=== PATIENT | female | born 1935 | race Two or more races ===

== ENCOUNTER 2019-01-01 09:49 | Inpatient (IN) | payer MEDICARE, MEDICAID ==
[~2019-01-01] VITALS: Ht 154.9 cm; Wt 40.8 kg
[2019-01-01] VITALS (7 sets, daily range): BP systolic 112–159; BP diastolic 53–86
[~2019-01-01 09:49] MED LIST: DILANTIN30 MG ORAL; DILANTIN50 MG ORAL; LISINOPRIL5 MG ORAL
--- NOTE | 2019-01-01 09:50 | NUR ---
ED Nurse Note: patient was brought by RA from home, AAO x 1, skin is very dry, intact. VSS at this time. patient has history of stroke, due to that patient is weak on her left side. Per patient's family she had seizure for 6 min. patient was connected to the monitor, precautions pad were applied. will continue to monitor
--- NOTE | 2019-01-01 09:55 | Emergency Room Report ---
History of Present Illness General Chief Complaint: Seizure Source: Patient, EMS (Dharmesh Hodgson MD) Present Illness HPI Patient is an 83-year-old female brought in by EMS after witnessed seizure. Patient reportedly had a approximately 6-minute seizure. Patient had prior history of CVA with left-sided weakness. Patient currently takes Dilantin. Patient was noted to be somewhat lethargic. (Dharmesh Hodgson MD) Allergies: Coded Allergies: PENICILLINS (Verified Allergy, Unknown, RASH, SOB, SWELLING, 01/01/19) PER PATIENT'S DAUGHTER Patient History Past Medical History: see triage record Reviewed Nursing Documentation: PMH: Agreed; PSxH: Agreed (Dharmesh Hodgson MD) Nursing Documentation-PMH Hx Hypertension: Yes Hx Seizures: Yes (Dharmesh Hodgson MD) Physical Exam Vital Signs Date Time Temp Pulse Resp B/P (MAP) Pulse Ox O2 Delivery O2 Flow Rate FiO2 01/01/19 09:34 98.4 78 19 174/75 95 Room Air General Appearance: lethargic, Chronically Ill Eyes: bilateral eye EOMI ENT: dry mucus membranes Neck: limited range of motion Respiratory: lungs clear, normal breath sounds Cardiovascular #1: tachycardia Gastrointestinal: normal inspection, soft Genitourinary: no CVA tenderness Musculoskeletal: back normal Neurologic: responsive, motor weakness - left upper extremity Psychiatric: depressed affect Skin: normal inspection (Dharmesh Hodgson MD) Medical Decision Making Diagnostic Impression: Primary Impression: Epileptic seizure, generalized Additional Impression: Generalized weakness ER Course Patient presented for seizure. Differential diagnosis included CVA, medication withdrawal, cysticercosis, electrolyte abnormality, mass lesion, or intracranial hemorrhage.Patient reportedly had been seen recently at urgent care. Patient was given IV Keppra. she had recently been prescribed Keppra. Patient had previously had some residual left-sided weakness. EKG interpreted by me showed normal sinus rhythm with a rate of [address] or T wave changes. Patient was endorsed to Dr. Padilla pending CT imaging and final disposition. Labs Test 01/01/19 09:50 White Blood Count 8.7 K/UL (4.8-10.8) Red Blood Count 4.97 M/UL (4.20-5.40) Hemoglobin 15.4 G/DL (12.0-16.0) Hematocrit 47.2 % (37.0-47.0) Mean Corpuscular Volume 95 FL (80-99) Mean Corpuscular Hemoglobin 31.0 PG (27.0-31.0) Mean Corpuscular Hemoglobin Concent 32.6 G/DL (32.0-36.0) Red Cell Distribution Width 12.1 % (11.6-14.8) Platelet Count 249 K/UL (150-450) Mean Platelet Volume 7.8 FL (6.5-10.1) Neutrophils (%) (Auto) 70.9 % (45.0-75.0) Lymphocytes (%) (Auto) 21.1 % (20.0-45.0) Monocytes (%) (Auto) 6.7 % (1.0-10.0) Eosinophils (%) (Auto) 0.9 % (0.0-3.0) Basophils (%) (Auto) 0.4 % (0.0-2.0) Sodium Level 138 MMOL/L (136-145) Potassium Level 3.5 MMOL/L (3.5-5.1) Chloride Level 101 MMOL/L (98-107) Carbon Dioxide Level 29 MMOL/L (21-32) Anion Gap 8 mmol/L (5-15) Blood Urea Nitrogen 11 mg/dL (7-18) Creatinine 0.7 MG/DL (0.55-1.30) Estimat Glomerular Filtration Rate mL/min (>60) Glucose Level 100 MG/DL (74-106) Calcium Level 9.4 MG/DL (8.5-10.1) Total Bilirubin 0.7 MG/DL (0.2-1.0) Aspartate Amino Transf (AST/SGOT) 29 U/L (15-37) Alanine Aminotransferase (ALT/SGPT) 31 U/L (12-78) Alkaline Phosphatase 99 U/L (46-116) Total Protein 8.4 G/DL (6.4-8.2) Albumin 3.7 G/DL (3.4-5.0) Globulin 4.7 g/dL Albumin/Globulin Ratio 0.8 (1.0-2.7) Phenytoin (Dilantin) Level < 0.5 ug/mL (10-20) (Dharmesh Hodgson MD) ER Course Please refer to the initial note for the history exam and presentation Patient had been further disposition for inpatient care and pending endorsement for admission Initially I spoke to a physician and [facility] At a later time we were called back and told that the physician at this hospital would not be excepting the patient Has been over 7 hours of the patient stay in the emergency room I have asked registration to please escalate this with questioning to the IPA regarding the delay of care Nevertheless the patient was contacted for admission [facility] Please note that after further discussion with patient's family they also report patient has history of demyelinating disease, the other family member reports of the patient has had the same presentation with her left arm flexing upward for over the past 2 years, this was initially reported as being a new finding X-ray imaging did not show any acute disease on the left shoulder Again after prolonged stay in the emergency room after initial acceptance at [facility] And then now request for [facility] In decision-making for the best interest of the patient patient is admitted here for further care , Labs Test 01/01/19 09:50 White Blood Count 8.7 K/UL (4.8-10.8) Red Blood Count 4.97 M/UL (4.20-5.40) Hemoglobin 15.4 G/DL (12.0-16.0) Hematocrit 47.2 % (37.0-47.0) Mean Corpuscular Volume 95 FL (80-99) Mean Corpuscular Hemoglobin 31.0 PG (27.0-31.0) Mean Corpuscular Hemoglobin Concent 32.6 G/DL (32.0-36.0) Red Cell Distribution Width 12.1 % (11.6-14.8) Platelet Count 249 K/UL (150-450) Mean Platelet Volume 7.8 FL (6.5-10.1) Neutrophils (%) (Auto) 70.9 % (45.0-75.0) Lymphocytes (%) (Auto) 21.1 % (20.0-45.0) Monocytes (%) (Auto) 6.7 % (1.0-10.0) Eosinophils (%) (Auto) 0.9 % (0.0-3.0) Basophils (%) (Auto) 0.4 % (0.0-2.0) Sodium Level 138 MMOL/L (136-145) Potassium Level 3.5 MMOL/L (3.5-5.1) Chloride Level 101 MMOL/L (98-107) Carbon Dioxide Level 29 MMOL/L (21-32) Anion Gap 8 mmol/L (5-15) Blood Urea Nitrogen 11 mg/dL (7-18) Creatinine 0.7 MG/DL (0.55-1.30) Estimat Glomerular Filtration Rate mL/min (>60) Glucose Level 100 MG/DL (74-106) Calcium Level 9.4 MG/DL (8.5-10.1) Total Bilirubin 0.7 MG/DL (0.2-1.0) Aspartate Amino Transf (AST/SGOT) 29 U/L (15-37) Alanine Aminotransferase (ALT/SGPT) 31 U/L (12-78) Alkaline Phosphatase 99 U/L (46-116) Total Protein 8.4 G/DL (6.4-8.2) Albumin 3.7 G/DL (3.4-5.0) Globulin 4.7 g/dL Albumin/Globulin Ratio 0.8 (1.0-2.7) Phenytoin (Dilantin) Level < 0.5 ug/mL (10-20) (Prince Padilla DO) EKG Diagnostic Results Rate: normal Rhythm: NSR ST Segments: no acute changes (Dharmesh Hodgson MD) Other X-Ray Diagnostic Results Other X-Ray Diagnostic Results #1: X-Ray ordered: Left shoulder # of Views/Limited Vs Complete: 3 View Indication: Pain EP Interpretation: Yes Interpretation: no dislocation, no soft tissue swelling, no fractures Impression: No acute disease Electronically Signed by: Prince Padilla DO Other X-Ray Diagnostic Results #2: X-Ray ordered: left humerus # of Views/Limited Vs Complete: 2 View Indication: Pain EP Interpretation: Yes Interpretation: no dislocation, no soft tissue swelling, no fractures Impression: No acute disease Electronically Signed by: Prince Padilla DO (Prince Padilla DO) CT/MRI/US Diagnostic Results CT/MRI/US Diagnostic Results : Impression CT headIMPRESSION: 1. No acute intracranial findings. No evidence of intracranial hemorrhage, mass effect, or midline shift. 2. Remote lacunar infarct in the left basal ganglia. 3. Scattered periventricular and subcortical white matter hypodensities likely related to chronic small vessel disease changes. 4. Generalized cerebral parenchymal volume loss, likely age-related. 5. Symmetric prominence of the lateral and third ventricles is likely related to cerebral atrophy. Cannot exclude mild hydrocephalus. (Prince Padilla DO) Last Vital Signs Date Time Temp Pulse Resp B/P (MAP) Pulse Ox O2 Delivery O2 Flow Rate FiO2 01/01/19 09:34 98.4 78 19 174/75 95 Room Air Status: unchanged (Dharmesh Hodgson MD) Status: improved (Prince Padilla DO) Disposition: ADMITTED INPATIENT Condition: Serious Dharmesh Hodgson MD Jan 01, 2019 09:55 Prince Padilla DO Jan 01, 2019 18:21
[2019-01-01] MEDS ORDERED: levETIRAcetam 500 MG in D5W 110 ML IV ONE (10:30)
--- NOTE | 2019-01-01 10:36 | NUR ---
ED Nurse Note: due to tecnical issues EKG can not be done at this time
[2019-01-01 10:40] LABS: BASOPHILS % (AUTO) 0.4 % (0.0-2.0); EOSINOPHILS % (AUTO) 0.9 % (0.0-3.0); HEMATOCRIT 47.2 % (37.0-47.0); HEMOGLOBIN 15.4 G/DL (12.0-16.0); LYMPHOCYTES % (AUTO) 21.1 % (20.0-45.0); MEAN CORPUSCULAR VOLUME 95 FL (80-99); MONOCYTES % (AUTO) 6.7 % (1.0-10.0); NEUTROPHILS % (AUTO) 70.9 % (45.0-75.0); PLATELET COUNT 249 K/UL (150-450); RED BLOOD COUNT 4.97 M/UL (4.20-5.40); RED CELL DISTRIBUTION WIDTH 12.1 % (11.6-14.8); WHITE BLOOD COUNT 8.7 K/UL (4.8-10.8)
[2019-01-01 10:45] LABS: ANION GAP 8 mmol/L (5-15); BLOOD UREA NITROGEN 11 mg/dL (7-18); CALCIUM 9.4 MG/DL (8.5-10.1); CARBON DIOXIDE 29 MMOL/L (21-32); CHLORIDE 101 MMOL/L (98-107); CREATININE 0.7 MG/DL (0.55-1.30); POTASSIUM 3.5 MMOL/L (3.5-5.1); SODIUM 138 MMOL/L (136-145)
[2019-01-01 10:50] LABS: ALANINE AMINOTRANSFERASE 31 U/L (12-78); ALBUMIN 3.7 G/DL (3.4-5.0); ALBUMIN/GLOBULIN RATIO 0.8 (1.0-2.7); ALKALINE PHOSPHATASE 99 U/L (46-116); ASPARTATE AMINO TRANSFERASE 29 U/L (15-37); BILIRUBIN,TOTAL 0.7 MG/DL (0.2-1.0)
[2019-01-01] MEDS ORDERED: CLOPIDOGREL75 MG ORAL (12:29)
[2019-01-01] MEDS ORDERED: NAMENDA10 MG ORAL (12:29)
[2019-01-01] MEDS ORDERED: VENLAFAXINE H37.5 MG ORAL (12:29)
[2019-01-01] MEDS ORDERED: LACTULOSE10 GM/155 PO (12:29)
[2019-01-01] MEDS ORDERED: LEVETIRACE100 MG/1 M PO (12:29)
[2019-01-01] MEDS ORDERED: DONEPEZIL HCL10 MG ORAL (12:29)
[2019-01-01] MEDS ORDERED: GABAPENTIN300 MG ORAL (12:29)
[2019-01-01] MEDS ORDERED: HALOPERIDOL0.5 MG ORAL (12:29)
--- NOTE | 2019-01-01 13:10 | NUR ---
ED Nurse Note: patient went down for CT scan
--- NOTE | 2019-01-01 14:30 | Diagnostic Imaging Report ---
EXAM: CT Head Without Intravenous Contrast CLINICAL HISTORY: Altered mental status TECHNIQUE: Axial computed tomography images of the head/brain without intravenous contrast. CTDI is 70.53 mGy and DLP is 1347 mGy-cm. One or more of the following dose reduction techniques were used: automated exposure control, adjustment of the mA and/or kV according to patient size, use of iterative reconstruction technique. COMPARISON: No relevant prior studies available. FINDINGS: Brain: Generalized parenchymal volume loss, likely age-related. Periventricular and subcortical white matter hypodensities. Remote lacunar infarct in the left basal ganglia. No evidence of acute intracranial hemorrhage. No mass effect or midline shift. Ventricles: Symmetric prominence of the lateral and third ventricles, likely related to cerebral atrophy. . Bones/joints: Unremarkable. No acute fracture. Soft tissues: Unremarkable. Sinuses: Unremarkable as visualized. No acute sinusitis. Mastoid air cells: Unremarkable as visualized. No mastoid effusion. IMPRESSION: 1. No acute intracranial findings. No evidence of intracranial hemorrhage, mass effect, or midline shift. 2. Remote lacunar infarct in the left basal ganglia. 3. Scattered periventricular and subcortical white matter hypodensities likely related to chronic small vessel disease changes. 4. Generalized cerebral parenchymal volume loss, likely age-related. 5. Symmetric prominence of the lateral and third ventricles is likely related to cerebral atrophy. Cannot exclude mild hydrocephalus.
--- NOTE | 2019-01-01 15:56 | Diagnostic Imaging Report ---
ADDENDUM - Added by Paco Quintanilla MD on 01/01/2019 4:04 PM (-08:00) The left scapula and clavicle appear grossly intact. On further review, mild degenerative joint space loss at the left acromioclavicular and glenohumeral joints.. EXAM: XR Left Humerus, 2 or More Views CLINICAL HISTORY: TRAUMA TECHNIQUE: Frontal and lateral views of the left humerus. COMPARISON: No relevant prior studies available. FINDINGS: Bones/joints: Unremarkable. No visible displaced fracture or dislocation. No osseous erosions. Visualized joint spaces appear unremarkable. Soft tissues: Unremarkable. IMPRESSION: Unremarkable left humerus x-rays. <MYCVCSECTION> [employer] 01/01/19 16:12 Verify Receipt Verified receipt with Prince Padilla MD on 01/01 16:12 (-08:00)
[2019-01-01] MEDS ORDERED: Morphine Sulfate 4mg/ml Inj (IV USE ONLY) IVP ONE (16:00)
--- NOTE | 2019-01-01 16:21 | Diagnostic Imaging Report ---
EXAM: XR Left Shoulder Complete, 2 or More Views CLINICAL HISTORY: TRAUMA TECHNIQUE: Two or more views of the left shoulder. COMPARISON: Left humerus x-rays obtained the same date. FINDINGS: Bones/joints: Mild degenerative narrowing and marginal osteophytes in the left acromioclavicular and glenohumeral joints. Normal alignment is seen at the acromioclavicular and glenohumeral joints. No visible displaced fracture or dislocation. No osseous erosions. Coracoclavicular and subacromial spaces appear within normal limits. The clavicle and scapula appear intact. Soft tissues: Unremarkable. IMPRESSION: No evidence of acute fracture or dislocation.
--- NOTE | 2019-01-01 18:05 | NUR ---
ED Nurse Note: patient was transfered to tele, VSS at this time, report was given to MARQUEZ Jhaveri.
--- NOTE | 2019-01-01 18:12 | NUR ---
After vigorous tries to transfer patient finally was told by registration that bed at [facility] was blocked due to insurance being out of area. ER Md aware-admit patient to [facility].
[2019-01-01] MEDS ORDERED: EFFEXOR XR37.5 MG ORAL (18:15)
--- NOTE | 2019-01-01 19:44 | NUR ---
NURSE NOTES: REPORT RECEIVED FROM Yesenia, check belonging list, placed on laboratory monitor. report given to Danny ZAYAS
--- NOTE | 2019-01-01 19:45 | NUR ---
NURSE NOTES: Received report from Brenda Rangel RN. Patient in bed AAO x1 with ALOC, family at bedside. No S/S of acute pain or discomfort noted. kept clean, dry, and comfortable in bed. Belongings checklist done at bedside. Head to toe assessment initiated. Seizure and safety precaution in place at all times; siderails x3 up and padded, call light within reach, bed in lowest position, brakes and alarm on, and bedside suction equipment in place. Will call MD Navin for additional orders. Will continue to monitor
--- NOTE | 2019-01-01 20:50 | History & Physical ---
History and Physical History & Physicial Seizure RI Dementia, encephalopathy aspirating risk THN HLD Cad Sonja Verma DO Jan 01, 2019 20:50
[2019-01-01] MEDS ORDERED: LORazepam Inj 2mg/ml 1ml IV PRN (21:00)
[2019-01-01] MEDS ORDERED: Haloperidol 1mg tab ORAL PRN (21:15)
[2019-01-01] MEDS ORDERED: Lactulose 20gm/30ml UDC ORAL PRN (21:15)
[2019-01-01] MEDS ORDERED: levETIRAcetam 1,000mg/NS100ml 100 ML IVPB SCH (22:00)
--- NOTE | 2019-01-01 22:00 | NUR ---
NURSE NOTES: Spoke with Demian regarding patient status and admission to unit. New orders received and carried out. Will continue to monitor.
[2019-01-01] MEDS: D5NS 1,000 ML IV SCH (22:13)
[2019-01-02] VITALS: BP 154/84
--- NOTE | 2019-01-02 03:17 | NUR ---
NURSE NOTES: Patient in bed asleep with no S/S of acute pain. Will continue to monitor
--- NOTE | 2019-01-02 03:45 | Consultation ---
DATE OF CONSULTATION: 01/01/2019 NEUROLOGIC CONSULTATION CONSULTING PHYSICIAN: Juan Artis M.D. CHIEF COMPLAINT: This is the first [facility] admission for this 83-year-old right-handed woman who is admitted with a chief complaint of seizures beginning yesterday. HISTORY OF PRESENT ILLNESS: The patient has a history of dementia for at least a year, probably longer. She does not know her children's names frequently, does not know where she is at. She cannot walk for at least 30 years. She has had four strokes, last one was 20 years ago according to her daughter. She had left-sided weakness. Afterwards, she has not been able to walk for 20 years and is wheelchair bound. The patient has incontinence as well. There is no history of headaches or prior head injury. The patient did see doctors and was on Dilantin. The daughter denies a history of hypertension. Apparently, the patient has a history of hypertension. The patient lives with her daughter. The patient's laboratory on admission reveals a hemoglobin of 15.4 with hematocrit of 47.2, white count was 8700, and platelet count 249,000. She has normochromic normocytic indices. The patient was on Dilantin and her Dilantin level was less than 0.5. The chemistries are normal except for a total protein of 8.4. Creatinine is 0.7 and BUN is 11. The patient had a noncontrast CT scan of the brain today, which revealed: 1. Remote lacunar infarct in the left basal ganglia. 2. Scattered periventricular and subcortical white matter hypodensities, likely related to chronic small vessel disease changes. 3. Generalized cerebral parenchymal volume loss, slightly age-related. 4. Symmetric prominence of the lateral and third ventricle which is likely related to cerebral atrophy, cannot exclude mild hydrocephalus. The patient had shoulder and humerus x-rays. No fractures of the humerus were noted. The patient was given IV fluids of normal saline and placed on cardiac monitoring. She was given Keppra 500 mg IV one time and given morphine 4 mg IV. She had 4 mg of Zofran IV. I was asked to see the patient in neurologic consultation. There is no family history of neurologic disease. PAST MEDICAL HISTORY/PAST MEDICAL ILLNESSES: 1. Appendicitis and appendectomy 45 years ago. 2. Cerebrovascular disease, see above. 3. Possible history of hypertension. ALLERGIES: She is allergic to penicillin. SOCIAL HISTORY: She is a . She has four children. FAMILY HISTORY: Unavailable at this time. REVIEW OF SYSTEMS: Essentially unavailable. PHYSICAL EXAMINATION: GENERAL: She is a well-developed thin woman, lying in bed, with ballistic or clonic movements in the left upper extremity . There is fisting of the left hand. Some clonic movements of the left side of her abdomen and some lateral movements of the left leg, but much less than her abdomen or her left upper extremity. VITAL SIGNS: Blood pressure is 102/83, pulse oximetry is 100% on nasal cannula at 2 L/minute, pulse is 86, and temperature is 98 degrees. HEENT: Examination of the head, ears, eye, nose, mouth, and throat is essentially intact. The patient had a bruise in the lateral part of her tongue. NECK: She has significant neck stiffness both laterally and in forward movement. Carotids are +2 without any bruits. LUNGS: Breath sounds were decreased. CARDIOVASCULAR: PMI could not be felt today. JVP were not visualized. Heart tones are distant. I could not hear an S3, S4, murmur, or rubs. ABDOMEN: The abdomen was nearly scaphoid. There was clonic jerking on the left side of the abdomen. The bowel sounds are intact. There is no tenderness, masses, or organomegaly appreciated. BACK: There is no tenderness to percussion. Some kyphosis was noted. EXTREMITIES: Peripheral pulses are +2. There was no edema noted. NEUROLOGIC: Mental status, the patient's mental status fluctuated from mild lethargy to fully awake. She could do a one-step command. Stick out her tongue to command. She knew who she was. Did not know the date or the place. Nothing else could be obtained from her. CRANIAL NERVE EXAMINATION: CRANIAL NERVE II: Her visual vega appeared to be grossly intact bilaterally. Fundi could be visualized. CRANIAL NERVES III, IV AND : Horizontal extraocular motility was full to the right. However, there is gaze-evoked horizontal jerk nystagmus noted. Pupils are approximately 1.5 mm, round, with little to no light reaction. CRANIAL NERVE V: Corneal sensation was intact bilaterally. CRANIAL NERVE VII: Facial strength appeared to be symmetrical bilaterally. CRANIAL NERVE VIII: Auditory acuity was partially intact. CRANIAL NERVES IX AND X: Gag was decreased. CRANIAL NERVE XI: Could not be tested. CRANIAL NERVE XII: Tongue protruded in the midline without fasciculations or atrophy. MUSCLE EXAMINATION: The patient had clonic jerking movements mainly with abduction and elevation of the shoulder and flexion of the left elbow. She was fisting on the left side. Muscle strength, she can move the right upper extremity. Formal strength could not be tested. There was decreased bulk in the lower extremities. Tone was increased in the right upper extremity and decreased in the left upper extremity, and decreased in left leg compared to the right leg. There is some jerking of her lateral movement and jerking proximally at the left hip. There was no movement of the right lower extremity to deep pain and there was no movement to deep pain in the left lower extremity except for the above. Reflexes are 0 in the upper extremities and at the knees and ankles with an upgoing toe on testing for Babinski response on the right side, and a mute toe on the left side. COORDINATION: Could not be done. GAIT AND STATION: The patient was bedbound. SENSORY: The patient would open her eyes to deep pain in her chest, but not in her extremities. IMPRESSION: The patient's daughter states that the patient had bilateral tonic-clonic activity and she was probably unconscious. She has a lesion on the lateral part of her tongue, and therefore, she probably has a seizure disorder. Seizure disorder has been there for about a year. Yesterday, the patient had a five-minute seizure. 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 The patient's seizures are probably due to medication withdrawal. The causes of her seizures are probably due to cerebrovascular disease at least in the beginning. She may have had a new stroke now, but I cannot tell based on the CT scan of the brain and based on her physical examination. I am going to increase her Keppra to 1000 mg b.i.d. She will need an EEG and I am probably going to give her 1 mg of IV Ativan to stop her clonic jerks at this time. PLAN: 1. Ativan 2 mg IV now. 2. Keppra 1000 mg p.o. b.i.d. 3. EEG as soon as possible. 4. MRI scan of the brain. Thank you for this Dr. Navin bernard. Juan Artis MD DR: DANNIE JOB#: [id number] CC:
[2019-01-02 04:00] VITALS: BP 101/59
--- NOTE | 2019-01-02 07:10 | NUR ---
NURSE NOTES: Received report from Clayton. MARQUEZ. Patient resting in her bed with closed eyes. per report patient is a/o x 1 with ALOC and so agitated when awake. On 2L NC, tolerating well and SP02 at 99%. patient has no iv access at this time, patient removed her iv last night. 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 will continue plan of care and monitor for any changes noted.
--- NOTE | 2019-01-02 07:20 | NUR ---
HAND-OFF: Report given to Brenda Rangel RN. Patient in stable condition, endorsed plan of care.
[2019-01-02 07:50] LABS: BASOPHILS % (AUTO) 0.7 % (0.0-2.0); EOSINOPHILS % (AUTO) 0.4 % (0.0-3.0); HEMATOCRIT 36.8 % (37.0-47.0); HEMOGLOBIN 12.3 G/DL (12.0-16.0); LYMPHOCYTES % (AUTO) 20.3 % (20.0-45.0); MEAN CORPUSCULAR VOLUME 95 FL (80-99); MONOCYTES % (AUTO) 7.6 % (1.0-10.0); NEUTROPHILS % (AUTO) 71.1 % (45.0-75.0); PLATELET COUNT 218 K/UL (150-450); RED BLOOD COUNT 3.88 M/UL (4.20-5.40); RED CELL DISTRIBUTION WIDTH 12.1 % (11.6-14.8)
[2019-01-02 07:55] LABS: ANION GAP 9 mmol/L (5-15); BLOOD UREA NITROGEN 18 mg/dL (7-18); CALCIUM 9.1 MG/DL (8.5-10.1); CARBON DIOXIDE 26 MMOL/L (21-32); CHLORIDE 105 MMOL/L (98-107); CREATININE 0.7 MG/DL (0.55-1.30); POTASSIUM 3.5 MMOL/L (3.5-5.1); SODIUM 140 MMOL/L (136-145)
[2019-01-02 08:00] VITALS: BP 101/59
[2019-01-02] MEDS ORDERED: Haloperidol 1mg tab ORAL PRN (08:00)
--- NOTE | 2019-01-02 08:00 | NUR ---
NURSE NOTES: unable to insert new iv at this time ,patient so agitated and keep moving her arm.Dr. Verma notified. per we can admin Haldol 0.5 mg po every 4 hours
[2019-01-02] MEDS: Memantine 10mg tab ORAL SCH (08:23)
[2019-01-02] MEDS: levETIRAcetam 1,000mg/NS100ml 100 ML IVPB SCH ×2 (08:23→20:37)
[2019-01-02] MEDS: Donepezil 10mg tab ORAL SCH (08:24)
[2019-01-02] MEDS: Venlafaxine XR 37.5mg cap ORAL SCH (08:24)
[2019-01-02 09:25] VITALS: BP 143/73
[2019-01-02] MEDS ORDERED: LORazepam Inj 2mg/ml 1ml IV SCH ×2 (10:00→14:30)
--- NOTE | 2019-01-02 10:00 | NUR ---
NURSE NOTES: s/s of dysphagia noted. i crashed all medicationes and mixed awith apple sauce as ordered however, patient still had a hard time to swallow her medication. Dr. enciso notified regarding dysphagia. Stat Bedside ST eval ordered. per " still continue her po medications because she needs them."
--- NOTE | 2019-01-02 11:08 | NUR ---
CASE MANAGEMENT: REVIEW 83/F BIBA FROM HOME CC: SEIZURE SI: SEIZURE T 98.4 HR 78 RR 18 BP 174/75 SAT 95% ROOM AIR DILANTIN LEVEL <0.5 IS: KEPPRA IV X1 NS IVF BOLUS X1 ZOFRAN IV X1 MORPHINE IV X1 PATIENT ADMITTED TO TELEMETRY UNIT 01/01/2019 DCP: PATIENT IS FROM HOME
[2019-01-02] MEDS: D5NS 1,000 ML IV SCH (11:30)
[2019-01-02 11:55] VITALS: BP 118/56
--- NOTE | 2019-01-02 18:41 | Pulmonology Progress Note ---
Assessment/Plan Assessment/Plan Seizure RI Dementia, encephalopathy aspirating risk THN HLD Cad FU with neuro recommendations needs swallow eval ordered ? GT nebs and suction wound care monitor for sizure IVf for now Subjective Allergies: Coded Allergies: PENICILLINS (Verified Allergy, Unknown, RASH, SOB, SWELLING, 01/01/19) PER PATIENT'S DAUGHTER Subjective agitated through the day on haldol unable to take po AED via IV no reports of cp nv or bleeding Objective Last 24 Hour Vital Signs Date Time Temp Pulse Resp B/P (MAP) Pulse Ox O2 Delivery O2 Flow Rate FiO2 01/02/19 16:00 76 01/02/19 12:00 80 01/02/19 11:55 97.0 65 20 118/56 (76) 99 01/02/19 09:25 97.0 88 22 143/73 (96) 99 01/02/19 09:00 Nasal Cannula 2.0 01/02/19 08:00 89 01/02/19 08:00 97.9 75 18 101/59 (73) 98 01/02/19 04:00 97.9 75 18 101/59 (73) 98 01/02/19 04:00 79 01/02/19 00:00 98.0 87 19 154/84 (107) 99 01/02/19 00:00 81 01/01/19 21:00 Nasal Cannula 2.0 01/01/19 20:00 86 01/01/19 20:00 98.0 61 18 152/53 (86) 99 01/01/19 19:53 Nasal Cannula 2.0 01/01/19 19:11 98.0 86 20 102/83 100 Nasal Cannula 2.0 86 01/01/19 18:47 98.0 79 23 141/74 99 Nasal Cannula 2.0 Intake and Output 01/01/19 01/02/19 19:00 07:00 Intake Total 500 ml Balance 500 ml Intake IV Total 500 ml General Appearance: cachetic HEENT: normocephalic Respiratory/Chest: crackles/rales, rhonchi Cardiovascular: normal rate, regular rhythm Abdomen: soft, non tender, no organomegaly Neurologic/Psychiatric: unresponsiveness Laboratory Tests 01/02/19 07:12: White Blood Count 7.0, Red Blood Count 3.88L, Hemoglobin 12.3, Hematocrit 36.8L , Mean Corpuscular Volume 95, Mean Corpuscular Hemoglobin 31.8H, Mean Corpuscular Hemoglobin Concent 33.5, Red Cell Distribution Width 12.1, Platelet Count 218, Mean Platelet Volume 7.8, Neutrophils (%) (Auto) 71.1, Lymphocytes (% ) (Auto) 20.3, Monocytes (%) (Auto) 7.6, Eosinophils (%) (Auto) 0.4, Basophils ( %) (Auto) 0.7, Sodium Level 140, Potassium Level 3.5, Chloride Level 105, Carbon Dioxide Level 26, Anion Gap 9, Blood Urea Nitrogen 18, Creatinine 0.7, Estimat Glomerular Filtration Rate , Glucose Level 87, Calcium Level 9.1, Magnesium Level 2.1 Current Medications Medications (Trade) Dose Ordered Sig/Jeanne Route PRN Reason Start Time Stop Time Status Last Admin Dose Admin Acetaminophen (Tylenol) 650 mg Q4H PRN ORAL Mild Pain/Temp > 100.5 01/01/19 21:00 01/31/19 20:59 Clopidogrel Bisulfate (Plavix) 75 mg DAILY ORAL 01/02/19 09:00 02/01/19 08:59 01/02/19 08:24 Dextrose/Sodium Chloride 1,000 ml @ 75 mls/hr [id number] IV 01/01/19 22:00 01/31/19 21:59 01/02/19 11:30 Donepezil HCl (Aricept) 10 mg DAILY ORAL 01/02/19 09:00 02/01/19 08:59 01/02/19 08:24 Gabapentin (Neurontin) 300 mg BEDTIME ORAL 01/02/19 21:00 02/01/19 20:59 Haloperidol (Haldol) 0.5 mg EVERY 4 HOURS PRN ORAL Agitation/Psychosis 01/02/19 08:00 01/31/19 21:14 01/02/19 08:23 Lactulose (Cephulac) 20 gm Q12H PRN ORAL Constipation 01/01/19 21:15 01/31/19 21:14 Levetiracetam 100 ml @ 400 mls/hr Q12HR IVPB 01/02/19 09:00 02/01/19 08:59 01/02/19 08:23 Lorazepam (Ativan 2mg/ml 1ml) 2 mg Q30M PRN IV For Seizure 01/01/19 21:00 01/08/19 20:59 Memantine (Namenda) 10 mg DAILY ORAL 01/02/19 09:00 02/01/19 08:59 01/02/19 08:23 Ondansetron HCl (Zofran) 4 mg Q4H PRN IVP Nausea & Vomiting 01/01/19 21:00 01/31/19 20:59 Venlafaxine HCl (Effexor-XR) 37.5 mg DAILY ORAL 01/02/19 09:00 02/01/19 08:59 01/02/19 08:24 Sonja Verma DO Jan 02, 2019 18:41
--- NOTE | 2019-01-02 19:14 | NUR ---
NURSE NOTES: RECEIVED PATIENT ASLEEP, FAMILY AT BEDSIDE. FALL, SEIZURE AND ASPIRATION PRECAUTIONS IN PLACE: CALL LIGHT WITHIN REACH, BED IN LOW POSITION AND BED ALARM ON, SIDE RAILS PADDED, HOB ELEVATED AT LEAST 30 DEGREES. PLAN OF CARE REVIEWED WITH DAUGHTER.
--- NOTE | 2019-01-02 19:40 | NUR ---
HAND-OFF: Report given to CAROL ZAYAS.
[2019-01-02 20:00] VITALS: BP 98/49
--- NOTE | 2019-01-02 20:45 | History and Physical Report ---
DATE OF ADMISSION: 01/01/2019 REASON FOR ADMISSION: Seizure. HISTORY OF PRESENT ILLNESS: The patient is an 83-year-old female who was at an urgent care 24 hours prior to coming to our emergency room for seizure. She apparently had another seizure, was brought in by her family. She has got severe dementia, nonverbal, minimal p.o. intake, and cachectic. Family states that the seizure that happened on the day of admission was approximately 6 minutes. She has had a prior history of CVA with left-sided weakness. She does not follow commands. ALLERGIES: She has allergies to penicillin. PAST MEDICAL HISTORY: She has a history of hypertension and seizure disorder. SOCIAL HISTORY: Negative for tobacco or drugs. MEDICATIONS: Current medications are reviewed, reconciled, documented in the electronic medical record by dose, frequency, and route. FAMILY HISTORY: Unavailable. REVIEW OF SYSTEMS: Unavailable. PHYSICAL EXAMINATION: GENERAL: At the time exam, she is obtunded. VITAL SIGNS: Afebrile. Pulse 65, respirations 20, blood pressure 118/56. HEENT: Normocephalic and atraumatic. Oropharynx is dry. Nasal mucosa is dry. NECK: Supple. LUNGS: Bilateral rhonchi. HEART: Regular rate and rhythm without murmur. ABDOMEN: Soft and nontender. EXTREMITIES: No edema. NEUROLOGIC: She is cachectic with multiple ecchymoses of her upper extremities. LABORATORY AND DIAGNOSTIC DATA: Sodium 138, potassium 3.5, chloride 101, bicarb 29, BUN 11, creatinine 0.7, and glucose is 100. Her white count is 8.7, hemoglobin 15.4, and platelets are 249,000. Her chest x-ray was negative. A CT of her head was negative for acute findings. Remote lacunar infarcts were present. ASSESSMENT: 1. Seizure disorder with recurrent seizures. 2. Hypertension. 3. Coronary artery disease. 4. Renal insufficiency. 5. Dehydration. 6. Protein-calorie malnutrition. 7. Cachexia. PLAN: For the patient, IV fluids, nebulizers, antiepileptic medications, and follow up Neurology evaluation. DVT prophylaxis. Plavix and aspirin . She needs a swallow evaluation and evaluated by GI for consideration for a G-tube. Sonja Verma D.O. DR: MAURICIO JOB#: [id number] CC:
[2019-01-03] VITALS: BP 132/56
[2019-01-03] MEDS: D5NS 1,000 ML IV SCH ×2 (02:41→14:14)
[2019-01-03 04:00] VITALS: BP 99/48
--- NOTE | 2019-01-03 06:00 | NUR ---
NURSE NOTES: PATIENT KEPT CLEAN AND DRY, INCONTINENCE CARE GIVEN NEEDED, CALAZIME LOTION APPLIED TO SACRAL AND PERINEAL AREA. BLE ELEVATED ON PILLOW WITH HEELS FLOATING.
--- NOTE | 2019-01-03 07:26 | NUR ---
HAND-OFF: Report given to MARQUEZ FINE. PATIENT ASLEEP, AROUSABLE, NO SIGNS OF DISTRESS NOTED.
--- NOTE | 2019-01-03 07:28 | NUR ---
NURSE NOTES: Received report from MARQUEZ Sinclair. Patient asleep. No acute distress/SOB noted. Will continue plan of care.
[2019-01-03 08:00] VITALS: BP 140/68
[2019-01-03] MEDS: Donepezil 10mg tab ORAL SCH (08:39)
[2019-01-03] MEDS: levETIRAcetam 1,000mg/NS100ml 100 ML IVPB SCH ×2 (08:39→21:48)
[2019-01-03] MEDS: Venlafaxine XR 37.5mg cap ORAL SCH (08:39)
[2019-01-03] MEDS: Memantine 10mg tab ORAL SCH (08:40)
--- NOTE | 2019-01-03 08:59 | NUR ---
NURSE NOTES: Crushed medication is given with apple sauce but patient refused to swallow. Oral suction is given for aspiration precaution. Wasted medication. Will continue plan of care.
[2019-01-03 12:00] VITALS: BP 136/56
--- NOTE | 2019-01-03 13:35 | NUR ---
RD ASSESSMENT & RECOMMENDATIONS SEE CARE ACTIVITY FOR COMPLETE ASSESSMENT DAILY ESTIMATED NEEDS: Needs based on Underweight/ 42kg 30-35 kcals/kg 8516-8204 total kcals 1-1.5 g protein/kg 42-63 g total protein 25-30 mL/kg 5146-2873 total fluid mLs NUTRITION DIAGNOSIS: Increased kcal/prot needs R/T underweight status as evidenced by low BMI per guidelines, pt @ 89% IBW, cachetic w/ severe generalized wasting. CURRENT DIET:SOFT, pureed moist PO DIET RECOMMENDATIONS: IF SAFE FOR PO -> Liberalized REGULAR/ texture per SOFTWARE QUALITY ASSURANCE ENGINEER ENTERAL NUTRITION RECOMMENDATIONS: CONSULT RD FOR TF REC IF PART OF POC, INDICATED ADDITIONAL RECOMMENDATIONS: * Re-calibrated bedscale wt * Weekly wts given underweight status * F/up w/ SOFTWARE QUALITY ASSURANCE ENGINEER evaluation
--- NOTE | 2019-01-03 15:48 | NUR ---
ST NOTE: BEDSIDE SWALLOW EVAL RECEIVED BEDSIDE SWALLOW EVAL ORDER CHART REVIEWED PRIOR THE EVALUATION. PT IS A 83-YEAR-OLD SYRIAN-SPEAKING FEMALE WHO WAS ADMITTED DUE TO SEIZURE. DYSPHAGIA RISK FACTORS: SEIZURE(PER DAUGHTER, IT SEEMS GETTING WORSE SINCE LAST 10/2018), H/O 4 STROKES(LAST 20YRS AGO WITH L/SIDED WEAKNESS), HTN, DEMENTIA, CARDIAC DISORDER PER HEAD CT: REMOTE LACUNAR INFARCT IN THE L BASAL GANGLIA, CEREBRAL ATROPHY. PLOF: PT LIVES AT HOME WITH FAMILY. PER PT'S DAUGHTER, PT WAS EATING PUREED FOOD AT HOME. PER DAUGHTER NOTICED HAVING DIFFICULTY WITH LIQUIDS. NO POLST WAS NOTED IN THE CHART, REGARDING TUBE FEEDING IF INDICATED. PER DAUGHTER, PT IS VERBAL, ABLE TO FOLLOW DIRECTIONS AND MORE ALERT. CURRENT STATUS: PT SEEN AT BEDSIDE IN PM. AWAKE WITH MAX CUES, PT'S DAUGHTER AND SON WERE AT BEDSIDE. PER FAMILY, FED PT AND PT ATE 100% DURING LUNCH AND WAS ABLE TO TOLERATE IT WITHOUT DIFFICULTY. MUMBLING SPEECH WAS NOTED. PER JAIMIE ZAYAS, ATTEMPTED TO GIVE CRUSHED MED THIS MORNING, PT DID NOT CLOSE HER MOUTH AND SWALLOW THE MEDS, AND REQUIRED ORAL SUCTION TO CLEAR IT OUT. ATTEMPTED TO GIVE PO TRIAL: THIN(TSPX1) ONLY INITIAL IMPRESSION: SIGNIFICANT (SEVERE) ORAL PHASE DYSPHAGIA AND QUESTIONABLE DEGREE OF PHARYNGEAL DYSPHAGIA JAW STIFFNESS WAS NOTED AND PT WAS UNABLE TO CLOSE HER MOUTH(USED TACTILE CUES AND COLD SPOON) SLOW TO MINIMAL TONGUE MOVEMENT, PT WAS UNABLE PUSH THE BOLUS POSTERIORLY, SUSPECTED ORAL APRAXIA, ORAL SUCTION WAS COMPLETED AND UNABLE TO ASSESS PHARYNGEAL PHASE AT THIS TIME. FINALLY PT SLOWLY CLOSES HER MOUTH WHEN PT'S DAUGHTER WAS TALKING TO PT. HAS HIGH RISK FOR ASPIRATION, MALNUTRITION AND HYDRATION. RECOMMENDATIONS: 1. HOLD PO FOR NOW UNTIL FURTHER ASSESS. 2. ORAL CARE. 3. SKILLED ST SERVICE TO FOLLOW UP TO RE-ASSESS PT'S SWALLOWING FUNCTION. 4. VIDEOSWALLOW STUDY D/W PT'S FAMILY, AND JAIMIE ZAYAS AND THE STAFF
[2019-01-03 16:00] VITALS: BP 107/47
--- NOTE | 2019-01-03 16:51 | General Progress Note ---
Assessment/Plan Assessment/Plan Seizure d/o with status eplipeticus AUDREY/CKD Dementia, encephalopathy aspirating risk THN HLD Cad disc w neuro swallow eval ordered nebs and suction wound care monitor for seizures IVs for now Subjective ROS Limited/Unobtainable: Yes Allergies: Coded Allergies: PENICILLINS (Verified Allergy, Unknown, RASH, SOB, SWELLING, 01/01/19) PER PATIENT'S DAUGHTER Objective Last 24 Hour Vital Signs Date Time Temp Pulse Resp B/P (MAP) Pulse Ox O2 Delivery O2 Flow Rate FiO2 01/03/19 12:00 97.0 64 24 136/56 (82) 96 01/03/19 12:00 57 01/03/19 09:00 Nasal Cannula 2.0 01/03/19 08:00 97.6 68 22 140/68 (92) 93 01/03/19 08:00 75 01/03/19 04:00 59 01/03/19 04:00 96.8 64 17 99/48 (65) 99 01/03/19 00:00 96.1 60 17 132/56 (81) 97 01/03/19 00:00 62 01/02/19 21:00 Nasal Cannula 2.0 01/02/19 20:00 70 01/02/19 20:00 96.8 66 17 98/49 (65) 97 Intake and Output 01/02/19 01/03/19 18:59 06:59 Intake Total 750 ml 945 ml Balance 750 ml 945 ml Intake IV Total 750 ml 945 ml # Voids 4 1 Laboratory Tests 01/03/19 16:10: Urine Color [Pending], Urine Appearance [Pending], Urine pH [Pending], Urine Specific [place] [Pending], Urine Protein [Pending], Urine Glucose (UA) [Pending ], Urine Ketones [Pending], Urine Blood [Pending], Urine Nitrite [Pending], Urine Bilirubin [Pending], Urine Urobilinogen [Pending], Urine Leukocyte Esterase [Pending], Urine RBC [Pending], Urine WBC [Pending], Urine Squamous Epithelial Cells [Pending], Urine Bacteria [Pending] Height (Feet): 5 Height (Inches): 1.00 Weight (Pounds): 90 General Appearance: no apparent distress, lethargic, confused, cachetic Neck: supple Cardiovascular: normal rate Respiratory/Chest: lungs clear Warner Holden MD Jan 03, 2019 16:51
[2019-01-03 17:08] LABS: APPEARANCE,URINE CLEAR; BILIRUBIN, URINE NEGATIVE (NEGATIVE); GLUCOSE, URINE (UA) NEGATIVE (NEGATIVE); KETONES,URINE NEGATIVE (NEGATIVE); LEUKOCYTE ESTERASE ,URINE 2+ (NEGATIVE); NITRITE,URINE NEGATIVE (NEGATIVE); PH,URINE 5 (4.5-8.0); PROTEIN,URINE NEGATIVE (NEGATIVE); UROBILINOGEN,URINE NORMAL MG/DL (0.0-1.0)
[2019-01-03 17:13] LABS: COLOR,URINE YELLOW
--- NOTE | 2019-01-03 17:45 | NUR ---
NURSE NOTES: Dr. Holden notified regarding Urinalysis, No new order at this time, will follow up with [facility].
--- NOTE | 2019-01-03 19:16 | NUR ---
NURSE NOTES: Report given to Jocelyn / RN. Patient is asleep, no distress / SOB noted.
--- NOTE | 2019-01-03 19:17 | NUR ---
NURSE NOTES: Received report from Rio RN. Patient sitting in bed awake aox4 with no signs of acute distress. Respiration even and non labored on room air. Vital's stable. No SOB. Bed in lowest position. Side rails padded. Seizure precaution observed. Call light within reach. All needs attended and met. Will continue plan of care. Addendum: 01/03/19 at 2031 by RODOLFO LOWERY RN Patient in bed asleep. aox1
--- NOTE | 2019-01-03 19:27 | NUR ---
CASE MANAGEMENT: REVIEW 01/03/2019 SI: SEIZURE T 97.8 HR 67 RR 19 B/P 107/47 SATS 97% ON 2L/NC NO LABS TODAY IS: IVF @ 75 mL/HR GABAPENTIN PO QHS PLAVIX PO QD ARICEPT PO QD NAMENDA PO QD EFFEXOR PO QD KEPPRA IV Q12H TELE STATUS DCP: PATIENT IS FROM HOME
[2019-01-03 20:00] VITALS: BP 115/59
--- NOTE | 2019-01-03 23:45 | Progress Note ---
DATE: 01/03/2019 SUBJECTIVE: The patient had her EEG, which revealed diffuse swelling. No evidence of epileptiform activity and no evidence of movement artifact. The patient did get 1 mg of Ativan 30 minutes after the EEG was started. The patient has not had any seizures overnight, but was agitated. She had some Haldol. PHYSICAL EXAMINATION: VITAL SIGNS: Blood pressure is 140/68, respiration rate is 22, pulse oximetry is 93, pulse rate is 68, temperature is 97.6 degrees. MENTAL STATUS: The patient was sleeping. On awakening, she was somewhat combative. However, she could do commands such as stick out your tongue, close your eyes. Could not smile on command. She did not answer to her name. She occasionally said 1 or 2 words in B[place]ian. CRANIAL NERVE EXAMINATION: CRANIAL NERVE II: Visual vega are grossly intact to confrontation. CRANIAL NERVES III, IV, AND : The eyes are in the midline. It is difficult for her to get any eye movements. CRANIAL NERVE V: Corneal sensation was intact bilaterally. CRANIAL NERVE VII: Facial strength seemed symmetrical. CRANIAL NERVE VIII: Hearing was partially intact. CRANIAL NERVES IX AND X: Could not be tested. CRANIAL NERVE XI: Could not be tested. CRANIAL NERVE XII: Tongue protrudes in the midline without fasciculations or atrophy. MUSCLE EXAMINATION: Muscle tone is unchanged. There is no chronic movement of the left upper extremity, the left side of her body, or the left leg. She moves the right side 3:27 left including the right leg. Appears to be some voluntary movement of the left leg about 2/5 and the left arm. Reflexes are 0 in the upper and lower extremities with downgoing toes and testing for Babinski response. SENSORY EXAMINATION: Could not be tested. IMPRESSION: The patient is improved. Seems to be more alert and awake, but more combative. I am going to continue her on her Keppra. There is no evidence of epileptiform activity on the EEG, which is kind of surprising. The cause of the seizures would of Dilantin herpes simplex encephalitis and meningitis, I do not think she needs a lumbar puncture. I do not think she has anti-NMDA antibody encephalitis. PLAN: Continue Keppra 1000 mg b.i.d. Juan MD Chandra DR: PEDRO JOB#: [id number] CC:
--- NOTE | 2019-01-03 23:45 | Progress Note ---
DATE: 01/02/2019 NOTE: "VERY POOR AUDIO QUALITY" SUBJECTIVE: The patient did not get her EEG last night. The patient is still confused and has an occasional jerking of her left upper extremity. PHYSICAL EXAMINATION: VITAL SIGNS: The temperature is 97 degrees, blood pressure is 143/72, respirations 22, pulse oximetry is 99%, pulse rate is 88. GENERAL: The patient is pretty lethargic, but awake and responds to voice and . MENTAL STATUS: She knows her name. She did not answer any other question. The patient can stick out her tongue to command. She closed her eyes to command and raised her right arm to command. CRANIAL NERVE II: Visual vega were grossly intact. CRANIAL NERVES III, IV, AND : There was decreased extraocular motility to the left with . Pupils were approximately 1 to 1.5 mm, with sluggish to dull reaction. CRANIAL NERVE V: Corneal appeared to be intact. CRANIAL NERVE VII: There is decreased left nasolabial fold . CRANIAL NERVE VIII: intact . CRANIAL NERVES IX AND X: Gag was decreased. CRANIAL NERVE XI: Could not be tested. CRANIAL NERVE XII: Tongue protrudes in the midline without fasciculations or atrophy. MUSCLE EXAMINATION: There were myoclonic jerks to the left arm, left upper chest and the shoulder area, and abdominal muscles and mainly to the left leg. She moved the right upper extremity with strength at least 4/5. Right lower extremity, there was no movement to . Reflexes otherwise are zero. The patient's tone is decreased in the left upper extremity and slightly decreased in the left lower extremity, increased in the right upper extremity with less paratonia, and allover increased in the right lower extremity. Reflexes are zero in the upper extremities and at the knees and ankles. Toes . COORDINATION: The patient can touch her nose with the right hand without dysmetria. Otherwise, coordination could not be tested. The patient essentially is bedbound. SENSORY: The patient is with decrease in pain in all 4 extremities. IMPRESSION: The patient appears to have myoclonic movements of the left side and now has some left facial numbness, which was not noticed yesterday. Increased Keppra is providing increased however, unfortunately the patient did not get her night including urinalysis I will give her, 2 mg of IV Ativan 1 injection at this point and see how she does. Unfortunately, . PLAN: 1. IV Ativan 2 mg 1 injection. 2. Urinalysis. 3. Magnesium level. 4. EEG this morning with continuous monitoring over 24 hours as necessary. 5. Portable chest x-ray. Juan Artis MD DR: PEDRO JOB#: [id number] CC:
[2019-01-04] VITALS: BP 89/48
[2019-01-04] MEDS: D5NS 1,000 ML IV SCH (03:24)
[2019-01-04 04:00] VITALS: BP 96/56
--- NOTE | 2019-01-04 07:04 | NUR ---
HAND-OFF: Report given to MARQUEZ Marino. Patient is stable. No seizure episode noted.
--- NOTE | 2019-01-04 07:05 | NUR ---
NURSE NOTES: Received report from Jocelyn / RN. Patient is asleep, No distress /SOB noted. Bed in low position, Call light in reach. All safety measure in place. Will continue plan of care.
[2019-01-04 08:00] VITALS: BP 152/63
[2019-01-04] MEDS: levETIRAcetam 1,000mg/NS100ml 100 ML IVPB SCH (09:16)
[2019-01-04] MEDS: Venlafaxine XR 37.5mg cap ORAL SCH (09:24)
[2019-01-04] MEDS: Donepezil 10mg tab ORAL SCH (09:24)
[2019-01-04] MEDS: Memantine 10mg tab ORAL SCH (09:24)
[2019-01-04] MEDS ORDERED: KEPPRA500 MG ORAL (09:58)
--- NOTE | 2019-01-04 10:31 | NUR ---
ST NOTE: SWALLOW/SPEECH/COGNITION STATUS: FOLLOWED UP PT'S CONDITIONS THIS AM. PT SEEN AT BEDSIDE IN AM. ALERT, COOPERATIVE, FOLLOWS SIMPLE DIRECTIONS, VERBAL. PER JAIMIE ZAYAS, PT WAS ABLE TO TAKE HER MEDICATION THIS MORNING. COMPLETED BREAKFAST WITH PT, PT WAS ON PUREE WITH THIN LIQUIDS. MILD L-SIDED FACIAL WEAKNESS AND MILD ORAL RESIDUE ON THE L SIDE, MILDLY INCREASED ORAL TRANSIT TIME AND OROPHARYNGEAL TRANSIT TIME, FAIR LARYNGEAL ELEVATION, INCONSISTENT COUGHING WITH THIN LIQUIDS WAS NOTED. NO OVERT S/S OF ASPIRATION WITH PUREE AND NECTAR THICK LIQUIDS. PT COMPLETED 50-60% OF BREAKFAST. CHANGED DIET TO MOIST PUREE WITH NECTAR THICK LQIUID WITH STRICT ASPIRATION PRECAUTIONS WITH 1TO1 FEEDING. D/W JAIMIE ZAYAS. PER RN, PT WILL BE D/C HOME TODAY. RECOMMENDED VIDEOSWALLOW STUDY OP.
[2019-01-04 12:00] VITALS: BP 132/65
--- NOTE | 2019-01-04 12:25 | NUR ---
NURSE NOTES: Called Bairon Sharif (Daughter) and left a message regarding Discharge.
--- NOTE | 2019-01-04 12:31 | NUR ---
*-* INSURANCE *-* ALL CLINICALS ,REVIEWS AND INTERQUAL HAVE BEEN FAXED TO: HCP ADMISSION REPORTED TO [facility] [phone] AUTH#: [id number] BGM: DOUGIE F#: [phone] PLEASE FAX CLINICALS TO ABOVE #
[2019-01-04] MEDS ORDERED: D5NS 1000ml IV ONE (13:59)
--- NOTE | 2019-01-04 14:00 | NUR ---
NURSE NOTES: Patient is in stable condition, discharge instruction given to daughter/ Chante. Verbalized understand. Heart monitor and IV removed. Patient left with Daughter/Chante via private vehicle.
--- NOTE | 2019-01-04 22:30 | Electroencephalogram ---
DATE OF PROCEDURE: 01/02/2019 PROCEDURE: Electroencephalogram. REQUESTING PHYSICIANS: Juan Artis M.D. & Warner Holden M.D. READING PHYSICIAN: Kleber Campbell M.D. HISTORY: This EEG was performed on an 83-year-old lady with a history of prior cerebral infarcts, who was hospitalized for possible seizures. The purpose of this EEG was to evaluate the patient for ongoing ictal or interictal phenomena. TECHNICAL NOTE: This EEG was performed on [employer] acquisition Unit with electrodes placed on the scalp according to the International 10-20 system. A single double distance montage was used making the EEG technically unsatisfactory. The EEG was performed while the patient was in the awake, drowsy, and sleep states. Parts of EEG were marked by the EMG, movement, and electrode, artifacts. OBSERVATIONS: In the best awake state, the background activity consisted of 7-7.5 Hz theta activity with a large amount of EMG, movement and electrode artifact. Drowsiness was characterized by slowing of the background in the 4-5 Hz theta range with intermixed delta frequencies. During drowsiness, right centro-temporal polymorphic delta activity was seen. Stage II sleep was characterized by further slowing of the background in the delta and theta range, the presence of vertex waves, and slow 10-12 Hz sleep spindles. No epileptiform discharges were seen. IMPRESSION: This is an abnormal EEG characterized by: 1. Slowing of the background in the 7-7.5 Hz theta range in the best awake state. 2. The presence of right centro-temporal polymorphic delta activity seen during drowsiness. 3. The presence of slow 10-12 Hz sleep spindles seen during sleep. COMMENT: The study is consistent with, 1. An encephalopathy of a moderate degree. 2. Focal right centro-temporal dysfunction. Clinical correlation is recommended. Kleber Campbell M.D., M.S.P.H. DR: ANGELES JOB#: [id number] MTDD
--- NOTE | 2019-01-05 11:57 | Discharge Summary ---
Discharge Summary Discharge Summary _ DATE OF ADMISSION: 01/01/2019 DATE OF DISCHARGE: 01/04/2019 DISCHARGED BY: Dr. 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 Patient was in urgent care 24 hours prior also for seizure episode. Per family member seizure lasted about 6 minutes. Patient nonverbal at baseline and was unable to provide any history. Upon evaluation vital signs revealed elevated blood pressure 174/75. Laboratory workup revealed no leukocytosis , stable hemoglobin and hematocrit. Stable electrolytes and renal parameters. Glucose 100. Stable LFT. Albumin 3.7. Dilantin level less than 0.5. CT of the head revealed no acute intracranial findings. No evidence of intracranial hemorrhage, mass-effect or midline shift. Noted remote lacunar infarct in the left basal ganglia. Generalized cerebral parenchymal volume loss, likely age-related. Symmetric prominence of the lateral and third ventricles,, likely related to cerebral atrophy but cannot exclude mild hydrocephalus. X-ray of the left shoulder revealed no evidence of acute fracture or dislocation. X-ray of the left humerus was unremarkable , no acute findings. Patient was admitted for further management CONSULTANTS: neurologist Dr. Artis [facility] COURSE: Patient admitted to telemetry floor. Patient started on the IV fluids. Neurologist followed. Seizure precautions were maintained. Keppra was continued with up titration of dose. Ativan was on board as needed for breakthrough seizure. EEG revealed encephalopathy of a moderate degree. Focal right central temporal dysfunction. No evidence of epileptiform activity. Neurologist did not recommend at this time lumbar puncture. 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 No further seizure activity while in the hospital. Supplemental oxygen provided as needed to keep oximetry above 92%. Patient was suctioned as needed. Bedside swallow evaluation revealed significant dysphagia and high risk for aspiration. Apparently family did not want to consider G-tube at this time. Diet was provided for quality of life with one-to-one feeding as per speech therapist recommendation with strict aspiration precautions. Nutritional recommendations regarding protein supplements implemented in plan of care. Aricept and Namenda were continued. Antiplatelet therapy with Plavix was continued. Bowel regimen instituted. Renal parameters and electrolytes were closely monitored, electrolytes corrected as needed. Nephrotoxins were avoided. Renal function remained stable. Patient stabilized and was ready for transfer home. FINAL DIAGNOSES: Seizure disorder with status epilepticus Encephalopathy Dementia Aspiration risk Dysphagia Dehydration Protein calorie malnutrition Hyperlipidemia Hypertension Coronary artery disease DISCHARGE MEDICATIONS: See Medication Reconciliation list. DISCHARGE INSTRUCTIONS: Patient was discharged home with home health services. Follow up with primary care provider in one week. I have been assigned to dictate discharge summary for this account. I was not involved in the patient's management. Laurie Larwence NP Jan 05, 2019 11:57
== END 2019-01-04 14:00 | disposition home health service (06) | DRG 101 ==
LOC: EDBD 09:49 → EMR 10:30 → 2E 15:30 → EDBEDREQ 18:12
DX: G40.901 Epilepsy, unspecified, not intractable, with status epilepticus (principal); E46 Unspecified protein-calorie malnutrition; G93.40 Encephalopathy, unspecified; I69.354 Hemiplegia and hemiparesis following cerebral infarction affecting left non-dominant side; Z68.1 Body mass index [BMI] 19.9 or less, adult; E86.0 Dehydration; Z88.0 Allergy status to penicillin; I25.10 Atherosclerotic heart disease of native coronary artery without angina pectoris; F03.90 Unspecified dementia, unspecified severity, without behavioral disturbance, psychotic disturbance, mood disturbance, and anxiety; R13.10 Dysphagia, unspecified; E78.5 Hyperlipidemia, unspecified; Z99.3 Dependence on wheelchair; I12.9 Hypertensive chronic kidney disease with stage 1 through stage 4 chronic kidney disease, or unspecified chronic kidney disease; N18.9 Chronic kidney disease, unspecified
CPT/HCPCS: 36415; 70450; 71045; 80048; 80053; 80185; 81001; 82962; 83735; 85025; 87081; 87086; 93005; 95819; 96374; 96375; 99285; J2405